=== PATIENT | female | born 1995 | race Caucasian/White ===

== ENCOUNTER 2022-11-16 04:03 | Emergency (ER) | payer OTHER ==
[2022-11-16 04:12] VITALS: RESP 16; TEMP 98
[2022-11-16] MEDS ORDERED: ONDANSETRON 4 MG/2 ML VIAL IVP STA (04:59)
[2022-11-16] MEDS ORDERED: SODIUM CHLORIDE 0.9% 1,000 ML IV STA (04:59)
--- NOTE | 2022-11-16 05:27 | ED ---
General Adult HPI - General Chief complaint: Dizziness Stated complaint: Dizziness, Vomitting, Weakness Time Seen by Provider: 11/16/22 04:27 Source: patient, RN notes reviewed, old records reviewed Mode of arrival: ambulatory Limitations: no limitations - History of Present Illness Initial comments: Patient is a 27-year-old female who presents emergency Department complaining of months of lightheadedness symptoms associated with nausea. States that it has seemed to be worse over the last day or 2. Denies any head trauma. Denies any change in medications. Denies any known palliative or provocative factors. Has not yet followed up with anyone for it. Was concerned she may have MS. Denies any current lightheadedness or nausea. Denies any weakness or numbness. Denies any fevers, chills, cough, chest pain, shortness breath, abdominal pain, diarrhea, urinary complaints. Denies being . His no other acute complaints at this time. States the lightheadedness seems to be mostly when she stands but does resolve when she sits down. No cardiac history. Presents for further evaluation at this time. - Related Data Home Medications Medication Instructions Recorded Confirmed Emtricitabine/Tenofovir (Tdf) 1 tab PO DAILY 08/09/21 08/09/21 [Emtricitabine-Tenofv 200-300Mg] Raltegravir Potassium [Isentress] 400 mg PO BID 08/09/21 08/09/21 Previous Rx's Medication Instructions Recorded Nicotine 21Mg/24Hr Patch [Habitrol] 1 patch TRANSDERM DAILY 30 Days 08/13/21 patch Paliperidone IM [Invega Sustenna] 156 mg IM QMONTHLY #1 each 08/13/21 Paliperidone [Invega] 3 mg PO HS 14 Days tablet 08/13/21 metFORMIN HCL [Glucophage] 500 mg PO BID-W/MEALS 30 Days tab 08/13/21 Allergies Allergy/AdvReac Type Severity Reaction Status Date / Time No Known Allergies Allergy Verified 11/16/22 04:08 Review of Systems ROS Statement: Those systems with pertinent positive or pertinent negative responses have been documented in the HPI. Review of Systems: CONST: Denies fever EYES: Denies blurry vision ENT: Denies nasal congestion C/V: Denies Chest pain RESP: Denies shortness of breath GI: Denies abdominal pain : Denies dysuria SKIN: Denies rash. MSK: Denies joint pain. NEURO: Endorses lightheadedness ROS Other: All systems not noted in ROS Statement are negative. 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 HEAD: Normal with no signs of head trauma. EYES: PERRLA, EOMI, conjunctiva normal, no discharge. Pupils 3 mm and equal bilaterally. ENT: Hearing grossly intact, normal oropharynx. RESPIRATORY: Clear breath sounds bilaterally. No wheezes, rales, or rhonchi. C/V: Regular rate and rhythm. S1 and S2 auscultated, peripheral pulses 2+ and intact throughout ABD: Abd is soft, nontender, nondistended EXT: Normal range of motion, no obvious deformity SKIN: No rashes or lesions observed on exposed skin. NEURO: Alert and oriented x 4. Cranial nerves II-XII intact. No focal sensory or strength deficits. NIH is 0. GCS 15. Cerebellar function intact as evident by normal finger to nose testing and [id number] testing. Limitations: no limitations Course Vital Signs 11/16/22 11/16/22 04:08 06:10 Temperature 98.0 F Pulse Rate 92 84 Respiratory 16 16 Rate Blood Pressure 124/67 138/91 O2 Sat by Pulse 98 100 Oximetry Medical Decision Making - Medical Decision Making Was pt. sent in by a medical professional or institution (, PA, ORIENTAL RUG REPAIRER, urgent care, hospital, or halfway...) When possible be specific @ -No Did you speak to anyone other than the patient for history (EMS, parent, family, police, friend...)? What history was obtained from this source @ -No Did you review nursing and triage notes (agree or disagree)? Why? @ -I reviewed and agree with nursing and triage notes Were old charts reviewed (outside hosp., previous admission, EMS record, old EKG, old radiological studies, urgent care reports/EKG's, halfway records)? Report findings @ -No old charts were reviewed Differential Diagnosis (chest pain, altered mental status, abdominal pain women, abdominal pain men, vaginal bleeding, weakness, fever, dyspnea, syncope, headache, dizziness, GI bleed, back pain, seizure, CVA, palpatations, mental health, musculoskeletal)? @ -Dehydration, near syncope, cardiac disease, intracranial process. This list is not all-inclusive. EKG interpreted by me (3pts min.). @ -As above X-rays interpreted by me (1pt min.). @ -None done CT interpreted by me (1pt min.). @ -CT brain revealed no evidence of obvious acute intra cranial process. U/S interpreted by me (1pt. min.). @ -None done What testing was considered but not performed or refused? (CT, X-rays, U/S, labs)? Why? @ -None What meds were considered but not given or refused? Why? @ -None Did you discuss the management of the patient with other professionals (professionals i.e. , PA, ORIENTAL RUG REPAIRER, lab, RT, psych nurse, social work job titles, it administrative assistant, teacher, jailer/training officer, case technician)? Give summary @ -No Was smoking cessation discussed for >3mins.? @ -No Was critical care preformed (if so, how long)? @ -No Were there social determinants of health that impacted care today? How? (Homelessness, low income, unemployed, alcoholism, drug addiction, transportation, low edu. Level, literacy, decrease access to med. care, [facility], rehab)? @ -No Was there de-escalation of care discussed even if they declined (Discuss DNR or withdrawal of care, Hospice)? DNR status @ -No What co-morbidities impacted this encounter? (DM, HTN, Smoking, COPD, CAD, Cancer, CVA, ARF, Chemo, Hep., AIDS, mental health diagnosis, sleep apnea, morbid obesity)? @ -None Was patient admitted / discharged? Hospital course, mention meds given and route, prescriptions, significant lab abnormalities, going to OR and other pertinent info. @ -Based on the patient's presentation and physical exam, she presents emergency Department complaining of lightheadedness for the last few months, possibly worse over the last few days. Is concerned she may have MS and wanted to be evaluated. Currently is asymptomatic. Neuro exam unremarkable. At her request we will obtain CT brain as well as basic labs. She was in agreement this plan. She'll be symptomatically treated with IV fluids and Zofran. Vital signs within acceptable limits. EKG showed no signs of acute ischemia.CT brain unremarkable. Laboratory studies within acceptable limits. On reevaluation, patient would like to go home. We reviewed her workup. She expressed understanding. Strict return precautions discussed. She'll be dis charged home at this time. She remains asymptomatic at this time. I instructed the patient to follow up with their PCP in the next 1-3 days. . I explained that the patient should return to the emergency department if they experience any worsening symptoms. Strict return precautions were discussed with the patient. The patient expressed understanding of these instructions. I answered all questions that the patient had. The patient was discharged home in good condition with their prescriptions and follow up information. Undiagnosed new problem with uncertain prognosis? @ -No Drug Therapy requiring intensive monitoring for toxicity (Heparin, Nitro, Insulin, Cardizem)? @ -No Were any procedures done? @ -No Diagnosis/symptom? @ -Lightheadedness Acute, or Chronic, or Acute on Chronic? @ -Chronic Uncomplicated (without systemic symptoms) or Complicated (systemic symptoms)? @ -Uncomplicated Side effects of treatment? @ -No Exacerbation, Progression, or Severe Exacerbation? @ -No Poses a threat to life or bodily function? How? (Chest pain, USA, [place], pneumonia, PE, COPD, DKA, ARF, appy, cholecystitis, CVA, Diverticulitis, Homicidal, Suicidal, threat to staff... and all critical care pts) @ -No - Lab Data Result diagrams: 11/16/22 05:20 11/16/22 05:20 Lab Results 11/16/22 11/16/22 Range/Units 05:20 05:20 WBC 10.1 (3.8-10.6) k/uL RBC 4.68 (3.80-5.40) m/uL Hgb 13.6 (11.4-16.0) gm/dL Hct 40.8 (34.0-46.0) % MCV 87.1 (80.0-100.0) fL MCH 29.0 (25.0-35.0) pg MCHC 33.2 (31.0-37.0) g/dL RDW 12.6 (11.5-15.5) % Plt Count 210 (150-450) k/uL MPV 7.2 Neutrophils % 73 % Lymphocytes % 20 % Monocytes % 5 % Eosinophils % 1 % Basophils % 0 % Neutrophils # 7.3 (1.3-7.7) k/uL Lymphocytes # 2.0 (1.0-4.8) k/uL Monocytes # 0.5 (0-1.0) k/uL Eosinophils # 0.1 (0-0.7) k/uL Basophils # 0.0 (0-0.2) k/uL Sodium 137 (137-145) mmol/L Potassium 3.9 (3.5-5.1) mmol/L Chloride 106 (98-107) mmol/L Carbon Dioxide 26 (22-30) mmol/L Anion Gap 5 mmol/L BUN 9 (7-17) mg/dL Creatinine 0.72 (0.52-1.04) mg/dL Est GFR (CKD-EPI)AfAm >90 (>60 ml/min/1.73 sqM) Est GFR (CKD-EPI)NonAf >90 (>60 ml/min/1.73 sqM) Glucose 97 (74-99) mg/dL Calcium 8.4 (8.4-10.2) mg/dL HCG, Qual Not Detected - EKG Data -: EKG Interpreted by Me EKG Comments: 12-lead Electrocardiogram Interpretation Note EKG was reviewed and interpreted by myself. 12-lead ECG performed at 0509 is interpreted by me as revealing normal sinus rhythm at a rate of 63 beats per minute. [place] is normal. PA interval is 146 ms, QRS duration is 79 ms, ATC is 374 ms.. There were no ST or T wave abnormalities to suggest myocardial ischemia or injury. R wave progression across the precordium was satisfactory. By my interpretation this EKG is non-diagnostic for acute ischemia. Disposition Clinical Impression: Lightheadedness Disposition: HOME SELF-CARE Condition: Good Instructions (If sedation given, give patient instructions): Dizziness (ED) Is patient prescribed a controlled substance at d/c from ED?: No Referrals: Mir Askew MD [Primary Care Provider] - 1-2 days Time of Disposition: 06:10
[2022-11-16 05:32] LABS: Basophils % (A) 0 %; Eosinophils # (A) 0.1 k/uL (0-0.7); Eosinophils % (A) 1 %; HCT 40.8 % (34.0-46.0); HGB 13.6 gm/dL (11.4-16.0); Lymphocytes % (A) 20 %; MCHC 33.2 g/dL (31.0-37.0); MCV 87.1 fL (80.0-100.0); Mean Platelet Volume 7.2; Monocytes # (A) 0.5 k/uL (0-1.0); Monocytes % (A) 5 %; Neutrophils # (A) 7.3 k/uL (1.3-7.7); Neutrophils % (A) 73 %; Platelet Count 210 k/uL (150-450); RBC 4.68 m/uL (3.80-5.40); RDW 12.6 % (11.5-15.5); WBC 10.1 k/uL (3.8-10.6)
[2022-11-16 05:51] LABS: African American GFR (CKD) >90 (>60 ml/min/1.73 sqM); Anion Gap 5 mmol/L; Blood Urea Nitrogen 9 mg/dL (7-17); Calcium 8.4 mg/dL (8.4-10.2); Carbon Dioxide 26 mmol/L (22-30); Chloride 106 mmol/L (98-107); Glucose 97 mg/dL (74-99); Non-African American GFR(CKD) >90 (>60 ml/min/1.73 sqM); Potassium 3.9 mmol/L (3.5-5.1); Sodium 137 mmol/L (137-145)
[2022-11-16 05:56] LABS: HCG,Qualitative Serum Not Detected
[2022-11-16 06:13] VITALS: BP 138/91; PULSE 84
--- NOTE | 2022-11-16 06:14 | CT ---
EXAMINATION TYPE: CT brain wo con CT DLP: 1129 mGycm, Automated exposure control for dose reduction was used. DATE OF EXAM: 11/16/2022 5:10 AM COMPARISON: . CLINICAL INDICATION:Female, 27 years old with history of dizzy, TECHNIQUE: Brain: Axial CT images of the brain were obtained with coronal and sagittal reformats created and rev iewed. Contrast used: None. Oral contrast used: None. FINDINGS: Brain: Extra-axial spaces: No abnormal extra-axial fluid collections. Ventricular system: Within normal limits Cerebral parenchyma: No acute intraparenchymal hemorrhage or mass effect. The atkinson-white junction is well differentiated. Cerebellum: Unremarkable. Mass effect: No evidence of midline shift. Intracranial vasculature: unremarkable Soft tissues: Normal. Calvarium/osseous structures: No depressed skull fracture. Paranasal sinuses and mastoid air cells: Mild scattered paranasal sinus disease. Visualized orbits: Orbital contents are intact. IMPRESSION: No acute intracranial process.
== END 2022-11-16 06:32 | disposition home or self-care (01) ==
LOC: EC 04:03
DX: R42 Dizziness and giddiness (principal); F32.A Depression, unspecified; F17.290 Nicotine dependence, other tobacco product, uncomplicated; F12.90 Cannabis use, unspecified, uncomplicated
CPT/HCPCS: 36415; 93005; 80048; 85025; 84703; 70450; 99284; 96374; 96361; J2405

== ENCOUNTER 2022-11-16 19:47 | Inpatient (IN) | payer OTHER, MEDICAID ==
--- NOTE | 2022-11-16 22:18 | ED ---
General Adult HPI - General Chief complaint: Anxiety Stated complaint: Mental Health Time Seen by Provider: 11/16/22 21:21 Source: patient, family, RN notes reviewed, old records reviewed Mode of arrival: ambulatory Limitations: no limitations - History of Present Illness Initial comments: Patient is a 27-year-old female who presents emergency Department complaining of worsening anxiety. Presents with her father today. I evaluated the patient earlier this morning with complaints of intermittent lightheadedness. She did not outline transfer mental health evaluation earlier this morning. She returns this evening with her father, should sending text messages that she thinks she needs to seek help. Is concerned as it does appear she is having unspecified delusions and paranoia. She has been compliant with her medications Abilify with no relief. Denies suicidal or homicidal ideations, attempts, plans. Denies any visual or auditory hallucinations. She is requesting psychiatric evaluation. Otherwise has no acute complaints at this time. - Related Data Home Medications Medication Instructions Recorded Confirmed ARIPiprazole IM SYRINGE [Abilify 400 mg IM Q28D 11/16/22 11/16/22 Maintena Syringe] Allergies Allergy/AdvReac Type Severity Reaction Status Date / Time No Known Allergies Allergy Verified 11/16/22 22:39 Review of Systems ROS Statement: Those systems with pertinent positive or pertinent negative responses have been documented in the HPI. Review of Systems: CONST: Denies fever EYES: Denies blurry vision ENT: Denies nasal congestion C/V: Denies Chest pain RESP: Denies shortness of breath GI: Denies abdominal pain : Denies dysuria SKIN: Denies rash. MSK: Denies joint pain. NEURO: Denies headache PSYCH: Denies suicidal and homicidal ideations/plans/attempts. Denies visual or auditory hallucinations. She endorses worsening anxiety, unspecified delusions and paranoia ROS Other: All systems not noted in ROS Statement are negative. 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 EYES: PERRLA, EOMI, conjunctiva normal, no discharge. Pupils 3 mm and equal bilaterally. ENT: Hearing grossly intact, normal oropharynx. RESPIRATORY: Clear breath sounds bilaterally. No wheezes, rales, or rhonchi. C/V: Regular rate and rhythm. S1 and S2 auscultated, no edema, peripheral pulses 2+ and intact throughout ABD: Abd is soft, nontender, nondistended EXT: Normal range of motion, no obvious deformity SKIN: No rashes or lesions observed on exposed skin. NEURO: Alert and oriented 4. No focal sensory or strength deficits. Cranial nerves II through XII are intact. NIH of 0. GCS is 15. Ambulates without difficulty. Normal cerebellar function. Limitations: no limitations Course Vital Signs 11/16/22 20:06 Temperature 98.0 F Pulse Rate 95 Respiratory 26 H Rate Blood Pressure 130/82 O2 Sat by Pulse 96 Oximetry Medical Decision Making - Medical Decision Making Was pt. sent in by a medical professional or institution (, PA, MAINTENANCE PLANNER, urgent care, hospital, or assisted...) When possible be specific @ -No Did you speak to anyone other than the patient for history (EMS, parent, family, police, friend...)? What history was obtained from this source @ -Patient's father who is at bedside who aids in the history states he received text messages which the patient states she wants psychiatric evaluation due to worsening delusions and paranoia. Patient does not want her father to reveal the exact delusions or paranoia to me at this time. Did you review nursing and triage notes (agree or disagree)? Why? @ -I reviewed and agree with nursing and triage notes Were old charts reviewed (outside hosp., previous admission, EMS record, old EKG, old radiological studies, urgent care reports/EKG's, assisted records)? Report findings @ -No old charts were reviewed Differential Diagnosis (chest pain, altered mental status, abdominal pain women, abdominal pain men, vaginal bleeding, weakness, fever, dyspnea, syncope, headache, dizziness, GI bleed, back pain, seizure, CVA, palpatations, mental health, musculoskeletal)? @ -Differential Mental Health Depression, anxiety, bipolar, psychosis, schizophrenia, borderline personality, situational depression, adjustment disorder, behavioral disorder, brain tumor, malingering, substance abuse, encephalopathy, medication reaction, dementia, hypothyroidism, degenerative neurologic disorder, lupus.... This is not meant to be all-inclusive list EKG interpreted by me (3pts min.). @ -None done X-rays interpreted by me (1pt min.). @ -None done CT interpreted by me (1pt min.). @ -None done U/S interpreted by me (1pt. min.). @ -None done What testing was considered but not performed or refused? (CT, X-rays, U/S, labs)? Why? @ -None What meds were considered but not given or refused? Why? @ -I offered an anxiolytic Ativan which she declines at this time. Did you discuss the management of the patient with other professionals (professionals i.e. , PA, MAINTENANCE PLANNER, lab, RT, psych nurse, social services designee, music manager, teacher, dental officer, case therapist)? Give summary @ -EPS was notified of the consult for psychiatric evaluation. They notified me the patient will be admitted. Was smoking cessation discussed for >3mins.? @ -No Was critical care preformed (if so, how long)? @ -No Were there social determinants of health that impacted care today? How? (Homelessness, low income, unemployed, alcoholism, drug addiction, transportation, low edu. Level, literacy, decrease access to med. care, intermediate, rehab)? @ -No Was there de-escalation of care discussed even if they declined (Discuss DNR or withdrawal of care, Hospice)? DNR status @ -No What co-morbidities impacted this encounter? (DM, HTN, Smoking, COPD, CAD, Cancer, CVA, ARF, Chemo, Hep., AIDS, mental health diagnosis, sleep apnea, morbid obesity)? @ -History of psychiatric illness Was patient admitted / discharged? Hospital course, mention meds given and route, prescriptions, significant lab abnormalities, going to OR and other pertinent info. @ -Based on the patient's presentation and physical exam, I believe she requires psychiatric evaluation. She was placed in green scrubs. Sitter was ordered. BAT is 0. UDS is pending. Vital signs within acceptable limits. I did offer the patient Ativan which she refuses at this time. At this time, patient is medically cleared for evaluation by psychiatry. Disposition is pending psychiatric evaluation. EPS is notified. Patient evaluated by EPS. Determined that she does meet inpatient criteria for admission. Patient signed herself in. She was admitted in stable condition. Undiagnosed new problem with uncertain prognosis? @ -No Drug Therapy requiring intensive monitoring for toxicity (Heparin, Nitro, Insulin, Cardizem)? @ -No Were any procedures done? @ -No Diagnosis/symptom? @ -Encounter for psychiatric evaluation, delusions, paranoia Acute, or Chronic, or Acute on Chronic? @ -Acute on chronic Uncomplicated (without systemic symptoms) or Complicated (systemic symptoms)? @ -Uncomplicated Side effects of treatment? @ -No Exacerbation, Progression, or Severe Exacerbation? @ -No Poses a threat to life or bodily function? How? (Chest pain, [place], [place], pneumonia, PE, COPD, DKA, ARF, appy, cholecystitis, CVA, Diverticulitis, Homicidal, Suicidal, threat to staff... and all critical care pts) @ -No - Lab Data Lab Results 11/16/22 11/17/22 Range/Units 21:38 01:37 Urine Opiates Screen Not Detected (NotDetected) Ur Oxycodone Screen Not Detected (NotDetected) Urine Methadone Screen Not Detected (NotDetected) Ur Propoxyphene Screen Not Detected (NotDetected) Ur Barbiturates Screen Not Detected (NotDetected) U Tricyclic Antidepress Not Detected (NotDetected) Ur Phencyclidine Scrn Not Detected (NotDetected) Ur Amphetamines Screen Not Detected (NotDetected) U Methamphetamines Scrn Not Detected (NotDetected) U Benzodiazepines Scrn Not Detected (NotDetected) Urine Cocaine Screen Not Detected (NotDetected) U Marijuana (THC) Screen Detected H (NotDetected) Coronavirus (PCR) Not Detected (Not Detectd) Disposition Clinical Impression: Encounter for psychological evaluation, Anxiety, Delusions, Paranoia Disposition: ADMITTED IP TO THIS [facility] Condition: Stable Instructions (If sedation given, give patient instructions): Generalized Anxiety Disorder (ED) Referrals: Mir Askew MD [Primary Care Provider] - 1-2 days Time of Disposition: 01:30
[2022-11-16 22:24] LABS: Amphetamine Screen,Urine Not Detected (NotDetected); Barbiturate Screen,Urine Not Detected (NotDetected); Benzodiazepines Screen,Urine Not Detected (NotDetected); Cocaine Screen,Urine Not Detected (NotDetected); Methadone Screen, Urine Not Detected (NotDetected); Opiate Screen,Urine Not Detected (NotDetected); Oxycodone Screen, Urine Not Detected (NotDetected); Phencyclidine Screen,Urine Not Detected (NotDetected); Tricyclic Antidepressant,Urine Not Detected (NotDetected); Urn Cannabinoid Scrn Detected (NotDetected)
[2022-11-17] MEDS ORDERED: LORazepam 0.5 MG TAB PO STA (02:12)
[2022-11-17] MEDS ORDERED: MAG HYDROX/AL HYDROX/SIMETH 30 ML CUP PO PRN (04:54)
[2022-11-17] MEDS ORDERED: HALOPERIDOL LACTATE 5 MG/ML 1 ML VIAL IM PRN (04:54)
[2022-11-17] MEDS ORDERED: MAGNESIUM HYDROXIDE 2,400 MG/10 ML CUP PO PRN (04:54)
[2022-11-17] MEDS ORDERED: LORazepam 1 MG TAB PO PRN (04:54)
[2022-11-17] MEDS ORDERED: haloperidoL 5 MG TAB PO PRN (05:05)
[2022-11-17] MEDS ORDERED: LORazepam 2 MG/ML INJ IM PRN (05:05)
[2022-11-17 06:11] LABS: Appearance,Urine Cloudy (Clear); Bacteria,Urine Few /hpf; Bilirubin,Urine Negative (Negative); Blood,Urine Small (Negative); Color,Urine Yellow; Glucose,Urine (UA) Negative (Negative); Ketones,Urine Negative (Negative); Leukocyte Esterase,Urine Negative (Negative); Mucus,Urine Rare /hpf; Nitrite,Urine Negative (Negative); Protein,Urine Negative (Negative); RBC,Urine 1 /hpf (0-5); Specific Gravity,Urine 1.025 (1.001-1.035); Squamous Epithelial Cell,Urine 4 /hpf (0-4); Urobilinogen,Urine <2.0 mg/dL (<2.0); WBC,Urine 2 /hpf (0-5)
[2022-11-17] MEDS: NICOTINE 14MG/24HR PATCH TRANSDERM SCH ×2 (14:49→15:06)
[2022-11-17] MEDS: NICOTINE GUM (POLACRILEX) 2 MG GUM BUCCAL PRN ×2 (16:27→21:17)
--- NOTE | 2022-11-17 20:54 | P.HP ---
Psychiatric H&P - . H&P Date: 11/17/22 History & Physical: Allergies Allergy/AdvReac Type Severity Reaction Status Date / Time No Known Allergies Allergy Verified 11/16/22 22:39 Vital Signs Temp 98.2 F 11/17/22 05:33 Pulse 68 11/17/22 05:33 Resp 18 11/17/22 05:33 BP 116/75 11/17/22 05:33 Pulse Ox 97 11/17/22 05:33 FiO2 Intake & Output 11/17/22 11/17/22 11/18/22 06:59 18:59 06:59 Weight 92.986 kg Laboratory Last Values Urine Color Yellow 11/16/22 21:38 Urine Appearance Cloudy (Clear) H 11/16/22 21:38 Urine pH 6.0 (5.0-8.0) 11/16/22 21:38 Ur Specific [place] 1.025 (1.001-1.035) 11/16/22 21:38 Urine Protein Negative (Negative) 11/16/22 21:38 Urine Glucose (UA) Negative (Negative) 11/16/22 21:38 Urine Ketones Negative (Negative) 11/16/22 21:38 Urine Blood Small (Negative) H 11/16/22 21:38 Urine Nitrite Negative (Negative) 11/16/22 21:38 Urine Bilirubin Negative (Negative) 11/16/22 21:38 Urine Urobilinogen <2.0 mg/dL (<2.0) 11/16/22 21:38 Ur Leukocyte Esterase Negative (Negative) 11/16/22 21:38 Urine RBC 1 /hpf (0-5) 11/16/22 21:38 Urine WBC 2 /hpf (0-5) 11/16/22 21:38 Ur Squamous Epith Cells 4 /hpf (0-4) 11/16/22 21:38 Urine Bacteria Few /hpf (None) H 11/16/22 21:38 Urine Mucus Rare /hpf (None) H 11/16/22 21:38 Urine HCG, Qual Not Detected (Not Detectd) 11/16/22 21:38 Urine Opiates Screen Not Detected (NotDetected) 11/16/22 21:38 Ur Oxycodone Screen Not Detected (NotDetected) 11/16/22 21:38 Urine Methadone Screen Not Detected (NotDetected) 11/16/22 21:38 Ur Propoxyphene Screen Not Detected (NotDetected) 11/16/22 21:38 Ur Barbiturates Screen Not Detected (NotDetected) 11/16/22 21:38 U Tricyclic Antidepress Not Detected (NotDetected) 11/16/22 21:38 Ur Phencyclidine Scrn Not Detected (NotDetected) 11/16/22 21:38 Ur Amphetamines Screen Not Detected (NotDetected) 11/16/22 21:38 U Methamphetamines Scrn Not Detected (NotDetected) 11/16/22 21:38 U Benzodiazepines Scrn Not Detected (NotDetected) 11/16/22 21:38 Urine Cocaine Screen Not Detected (NotDetected) 11/16/22 21:38 U Marijuana (THC) Screen Detected (NotDetected) H 11/16/22 21:38 Coronavirus (PCR) Not Detected (Not Detectd) 11/17/22 01:37 11/17/22 20:31 Interval History: Patient is a 27 yo female, works at a [employer], no kids, homeless, single H and P: Patient cmae into the EDfor complaints of increased anxiety, borughtin by her father. patient was evaluated by EPS and seen to be disorganized and bizarre and admitted to the MHU. veronica has a hx of schizoaffective disorder bipolar type and currently being treated at [facility] by Dr Gama and recently given Abilify Maintenna 400 mg IM last on 11/14. Patient was seen wandering the hallways and was agreeable to speak with property underwriter inthe office today. patient appeared to be discheveled in appearance. he was also disorganized in her thought process, had thought blocking and was illogical at times. she was minimizing her sx and need for hospitalization and treatment. she had poor/limited insight. she claims that she was feeling "confused" and also stated that her brain was "neurodegenerative" and felt lik her brain was "scrambled recently. she was a poor historian, rambled at times. she claims that these symptoms have started the past 2-3 months. she claims that she is having financial stressors, her car is "gone" and claims that she is having problems wih her father. she also was tearful when describing her poor social support. she states that she is havign anxiety and depression, claims her sleep is poor, appetite is fair. denies any paranoia at this time. she denies any AH or VH and denies any SI or HI. claims that she uses a significant amount of cannabis daily, and also smokes cigarettes. past psych hx: Patient has a documented hx of shizoaffective disorder, bipolar type. she follows up at [facility] with Dr Gama. she is currently on abilify maintenna 400 mg IM monthly. she was previously on invega sustenna and claims that it made her feel suicidal. she claims that she was last hospitalized at [facility] about 5 yrs ago. denies any suicide attempts in the past Past medical hx: see medical H and P family hx: patient denies social hx: Patient claims that she was born and raised in [place]. she states that she completed high school and did some college. 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 she denies any legal hx Mental status exam: Patient is mildly overwieght, long discheleved hair, confused and bizarre at times. she was attempting to cooperate. her speech was disorganzied and conrete, rambling at times. mood is depressed and endorsing some anxiety, affect is tearful and constricted. denies any si or hi and denies any ah or vh. she was disorganzie in htoughts and content. focused and minimzing her sx. she has poor ingith and judgment. alert and oriented to person and place only. poor concentration weakness/strength: Patient has poor social support, homeless, she has access to care and established with follow up. Assessment: Schizoaffective disorder bipolar type cannabis use disorder nicotine dependence homelessness Plan: Patient was admitted voluntarily to the MHU. she signed voluntary form and med consent forms, placed in chart. medications: patient was already given abilify maintenna 400 mg IM on 11/14 at [facility]. she is agreeable to start seroquel 50 mg qhs for psychosis/mood stabilization/insomnia. ativan and haldol prn for agitation/anxiety encouraged patient to cut back on cannabis use as this is likely percipiating her mental health condition NRT-nicotine gum encouraged groups and participation in [employer]. 11/17/22 20:52
[2022-11-17] MEDS: QUEtiapine 50 MG TAB PO SCH (21:17)
--- NOTE | 2022-11-17 21:57 | P.CONS ---
History of Present Illness - Reason for Consult Consult date: 11/17/22 Medical management Requesting physician: Jose Rizo - Chief Complaint Not feeling right - History of Present Illness This is a pleasant 27-year-old patient, follows with Dr. Mir Askew. She does take Abilify IM once a month at home. Patient presents to the ER with her father. With anxiety some confusion. She wanted to get help and echotexture the father. Appetite has been fair. He is sleeping okay. No fever no chills. Apparently 2 days ago had taken about 200 mg of hydrocodone overnight. Patient does vaping every day. Stop doing methamphetamine about a year ago. Lives on her own. 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 Daily Vaping.. No alcohol. Stop doing methamphetamine about 1 year ago Physical examination: VITAL SIGNS: 98, 95, 26, 1:30/82, 96% room air GENERAL: BMI 34.1, sitting up his age in bed not in distress. EYES: Pupils equal. Conjunctiva normal. HEENT: External appearance of nose and ears normal, oral cavity grossly normal. NECK: JVD not raised; masses not palpable. HEART: First and second heart sounds are normal; no edema. LUNGS: Respiratory rate normal; clear to auscultation. ABDOMEN: Soft, nontender, liver spleen not palpable, no masses palpable. PSYCH: Alert and oriented x3; mood and affect anxiousl. MUSCULOSKELETAL:No Clubbing/cyanosis;muscles-grossly intact NEUROLOGICAL: Cranial nerves grossly intact; no facial asymmetry, power and sensation grossly intact. LYMPHATICS: No lymph nodes palpable in the axilla and neck INVESTIGATIONS, reviewed in the clinical context: UA: Small blood. Urine drug screen: Positive for marijuana COVID-19 PCR: Not detected Assessment and plan: -Vaping. Patient counseled against the same -Marijuana recreational use Advised against the same -Bipolar disorder with possibly manic flareup Follow with psychiatry -Obesity BMI 34.1 Weight loss measures -overdose about 48 hours ago with 200 mg of tetrahydrocannabinol. Thank you Dr. Goyes Past Medical History Past Medical History: No Reported History Additional Past Medical History / Comment(s): clean from meth for one year 10/2022 History of Any Multi-Drug Resistant Organisms: None Reported Past Surgical History: No Surgical Hx Reported Additional Past Surgical History / Comment(s): eye Past Anesthesia/Blood Transfusion Reactions: No Reported Reaction Past Psychological History: Bipolar, Depression Smoking Status: Current every day smoker, Vaper Past Alcohol Use History: None Reported Past Drug Use History: None Reported Medications and Allergies Home Medications Medication Instructions Recorded Confirmed Type ARIPiprazole IM SYRINGE [Abilify 400 mg IM Q28D 11/16/22 11/16/22 History Maintena Syringe] Allergies Allergy/AdvReac Type Severity Reaction Status Date / Time No Known Allergies Allergy Verified 11/16/22 22:39 Physical Exam Vitals: Vital Signs Temp Pulse Pulse Resp BP BP Pulse Ox 11/17/22 05:33 98.2 F 68 18 116/75 97 11/16/22 20:06 98.0 F 95 26 H 130/82 96 Intake and Output 11/16/22 11/17/22 11/17/22 22:59 06:59 14:59 Other: Weight 95.254 kg 92.986 kg Results Labs: Abnormal Lab Results - Last 24 Hours (Table) 11/16/22 11/16/22 Range/Units 21:38 21:38 Urine Appearance Cloudy H (Clear) Urine Blood Small H (Negative) Urine Bacteria Few H (None) /hpf Urine Mucus Rare H (None) /hpf U Marijuana (THC) Screen Detected H (NotDetected)
[2022-11-18] MEDS: NICOTINE GUM (POLACRILEX) 2 MG GUM BUCCAL PRN ×4 (08:01→20:49)
[2022-11-18] MEDS: ACETAMINOPHEN TAB 325 MG TAB PO PRN (13:50)
--- NOTE | 2022-11-18 14:00 | P.PN ---
Progress Note - Text Progress Note Date: 11/18/22 Interval History: Patient was seen wandering the hallways and was directable and agreeable to sp ale with typewriter assembly and parts inspector in the office. Patient appears to have mild improvement in her hygiene and grooming today. She appears to be more directable today and less confused. She claims that the Seroquel did help her sleep last night and she is agreeable to continue on with her. She did not want to have her medications increased. We spoke more about her family and also potential discharge planning She claims that she will try to go to some groups today. She states that her anxiety mood up and mildly improving. Anxiety fair appetite. At this time patient denies any suicidal or homical ideations, intent or plan. Patient denies any auditory, visual hallucinations and denies any paranoia or delusions. Patient denies any side effects from the medications and has been compliant with meds. Mental Status Exam: General Appearance: Patient appears to be stated age is alert, directable, and cooperative. Mildly disheveled today. Behavior: Patient is calmly seated without any agitated behavior. Improving. Less bizarre. Speech: Patient's speech is fluent and nonpressured. Mood/Affect: Mood is improving mildly, affect is congruent and constricted. Suicidality/Homicidality: Patient denies having any suicidal or homicidal ideation intent or plan. Perceptions: Patient denies any visual hallucinations and denies any auditory hallucinations Though content/process: There is no evidence of any delusional thought content and thought process is linear and goal-directed. Less rambling and more logical. Memory and concentration: AOX3, grossly intact for the purposes of this session Judgment and insight: Poor, Improving mildly Assessment Schizoaffective disorder bipolar type cannabis use disorder nicotine dependence homelessness Plan: -Patient continues to meet criteria for inpatient psychiatric admission for symptom stabilization and safety. Patient has not signed adult voluntary form and medication consent and was placed in patient's chart. -Medications: given abilify maintenna 400 mg IM on 11/14 at [facility]. Continue with seroquel 50 mg qhs for psychosis/mood stabilization/insomnia. -When necessary Ativan and Haldol for agitation/aggression. -NRT - nicotine gum -SW on board for discharge planning. Encouraged the patient to participate in milieu. If patient continues to do well then likely discharge Monday versus Monday.
[2022-11-18] MEDS: QUEtiapine 50 MG TAB PO SCH (20:49)
[2022-11-19] MEDS: NICOTINE GUM (POLACRILEX) 2 MG GUM BUCCAL PRN ×4 (08:22→20:37)
--- NOTE | 2022-11-19 16:59 | P.PN ---
Progress Note - Text Progress Note Date: 11/19/22 Interval History: Patient was seen wandering the hallways and was directable and agreeable to sp ale with advertising writer in the office. Patient appears to have mild improvement in her hygiene and grooming today. She says her mood is "pretty good" today. She says that she is not as confused as she felt yesterday. She also reports sleeping well on the Seroquel and says that the Abilify has also been helpful. Patient says that she has been attending groups and denies other concerns including anxiety. At this time patient denies any suicidal or homicidal ideations, intent or plan. Patient denies any auditory, visual hallucinations and denies any paranoia or delusions. Patient denies any side effects from the medications and has been compliant with meds. Mental Status Exam: General Appearance: Patient appears to be stated age is alert, directable, and cooperative. Mildly disheveled today. Behavior: Patient is calmly seated without any agitated behavior. Improving. Less bizarre. Speech: Patient's speech is fluent and nonpressured. Mood/Affect: Mood is improving mildly, affect is congruent and constricted. Suicidality/Homicidality: Patient denies having any suicidal or homicidal ideation intent or plan. Perceptions: Patient denies any visual hallucinations and denies any auditory hallucinations Though content/process: There is no evidence of any delusional thought content and thought process is linear and goal-directed. Less rambling and more logical. Memory and concentration: AOX3, grossly intact for the purposes of this session Judgment and insight: Poor, Improving mildly Assessment Schizoaffective disorder bipolar type cannabis use disorder nicotine dependence homelessness Plan: -Patient continues to meet criteria for inpatient psychiatric admission for symptom stabilization and safety. Patient has not signed adult voluntary form and medication consent and was placed in patient's chart. -Medications: given abilify maintenna 400 mg IM on 11/14 at [facility]. Continue with seroquel 50 mg qhs for psychosis/mood stabilization/insomnia. -When necessary Ativan and Haldol for agitation/aggression. -NRT - nicotine gum -SW on board for discharge planning. Encouraged the patient to participate in milieu. If patient continues to do well then likely discharge Monday versus Monday.
[2022-11-19] MEDS: QUEtiapine 50 MG TAB PO SCH (20:06)
[2022-11-20] MEDS: NICOTINE GUM (POLACRILEX) 2 MG GUM BUCCAL PRN ×3 (08:17→19:57)
[2022-11-20] MEDS: ACETAMINOPHEN TAB 325 MG TAB PO PRN (11:35)
[2022-11-20] MEDS ORDERED: NICOTINE 21MG/24HR PATCH TRANSDERM SCH (12:00)
--- NOTE | 2022-11-20 16:15 | P.PN ---
Progress Note - Text Progress Note Date: 11/20/22 Interval History: Patient was seen wandering the hallways and was directable and agreeable to sp ale with sheet writer in the office. Patient appears to have mild improvement in her hygiene and grooming today. She says her mood is "pretty good" today. She says she is not sure why she needs to be hospitalized. She also reports sleeping well on the Seroquel and says that the Abilify has also been helpful. Patient says that she has been attending groups and denies other concerns including anxiety. She reports good appetite. She says that her thoughts are going at 25 miles per hour if the speed limit were to be 45 miles per hour. Patient does speak slower and says that this is usual for her but says she enjoys thinking faster. At this time patient denies any suicidal or homicidal ideations, intent or plan. Patient denies any auditory, visual hallucinations and denies any paranoia or delusions. Patient denies any side effects from the medications and has been compliant with meds. Mental Status Exam: General Appearance: Patient appears to be stated age is alert, directable, and cooperative. Mildly disheveled today. Behavior: Patient is calmly seated without any agitated behavior. Improving. Less bizarre. Speech: Patient's speech is fluent and nonpressured. Slowed Mood/Affect: Mood is improving mildly, affect is congruent and constricted. Suicidality/Homicidality: Patient denies having any suicidal or homicidal ideation intent or plan. Perceptions: Patient denies any visual hallucinations and denies any auditory hallucinations Though content/process: There is no evidence of any delusional thought content and thought process is linear and goal-directed. Less rambling and more logical. Memory and concentration: AOX3, grossly intact for the purposes of this session Judgment and insight: Poor, Improving mildly Assessment Schizoaffective disorder bipolar type cannabis use disorder nicotine dependence homelessness Plan: -Patient continues to meet criteria for inpatient psychiatric admission for symptom stabilization and safety. Patient has not signed adult voluntary form and medication consent and was placed in patient's chart. -Medications: given abilify maintena 400 mg IM on 11/14 at [facility]. Continue with seroquel 50 mg qhs for psychosis/mood stabilization/insomnia. -When necessary Ativan and Haldol for agitation/aggression. -NRT - nicotine gum -SW on board for discharge planning. Encouraged the patient to participate in milieu. If patient continues to do well then likely discharge Monday versus Monday.
[2022-11-20] MEDS: QUEtiapine 50 MG TAB PO SCH (19:57)
[2022-11-21 06:36] VITALS: RESP 17
[2022-11-21] MEDS: NICOTINE GUM (POLACRILEX) 2 MG GUM BUCCAL PRN ×3 (11:28→20:54)
--- NOTE | 2022-11-21 11:36 | P.DS ---
Providers Date of admission: 11/17/22 04:52 Expected date of discharge: 11/21/22 Attending physician: Jose Rizo MD Consults: 11/17/22 04:54 Consult Physician Routine Consulting Provider: Fortino Calvillo Consult Reason/Comments: medical H& P Do you want consulting provider notified?: Yes Primary care physician: Mir Askew MD - Discharge Diagnosis(es) (1) Schizoaffective disorder, bipolar type Current Visit: Yes Status: Acute Priority: High (2) Cannabis use disorder Current Visit: Yes Status: Acute Priority: High (3) Nicotine dependence Current Visit: Yes Status: Acute Priority: Low (4) Homelessness Current Visit: Yes Status: Acute Priority: Medium Hospital Course: Admission HPI: Admission note was completed by va underwriter "Patient is a 27 yo female, 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 Patient cmae into the EDfor complaints of increased anxiety, borughtin by her father. patient was evaluated by EPS and seen to be disorganized and bizarre and admitted to the MHU. veronica has a hx of schizoaffective disorder bipolar type and currently being treated at [facility] by Dr Gama and recently given Abilify Maintenna 400 mg IM last on 11/14. Patient was seen wandering the hallways and was agreeable to speak with va underwriter inthe office today. patient appeared to be discheveled in appearance. he was also disorganized in her thought process, had thought blocking and was illogical at times. she was minimizing her sx and need for hospitalization and treatment. she had poor/limited insight. she claims that she was feeling "confused" and also stated that her brain was "neurodegenerative" and felt lik her brain was "scrambled recently. she was a poor historian, rambled at times. she claims that these symptoms have started the past 2-3 months. she claims that she is having financial stressors, her car is "gone" and claims that she is having problems wih her father. she also was tearful when describing her poor social support. she states that she is havign anxiety and depression, claims her sleep is poor, appetite is fair. denies any paranoia at this time. she denies any AH or VH and denies any SI or HI. claims that she uses a significant amount of cannabis daily, and also smokes cigarettes." Hospital course: Upon admission to the unit patient was directable and agreeable to commence treatment and signed adult voluntary form. Patient was initially bizarre and isolative however with treatment in time she got along well with other patients on the unit and followed unit protocol. Patient was compliant with the medications and denied any side effects throughout hospital course. Patient was started on Seroquel 50 mg daily at bedtime for insomnia/psychosis. Patient had received Abilify Maintenna 400 mg IM at [facility] on 11/14 and will be due for her next dose of 400 mg IM at [facility] on 12/12. Patient spoke of her stressors and engaged in therapy both group and individual. Patient was also seen by medical team for history and physical exam. Throughout the course of the hospitalization patient gradually improved with regards to mood, anxiety, psychosis, bizarre behaviors, sleep and returned back to their baseline level of functioning. On the day of discharge patient denied any suicidal or homicidal ideations intent or plan denied any auditory or visual hallucinations. Patient endorsed wanting to live for her job and her life. The patient denied any access to guns or weapons. Patient denied any paranoia and did not endorse any delusions. Patient does have a significant history of substance abuse and was counseled on abstaining from all substances including alcohol and marijuana. Patient elected to do outpatient substance use treatment program through [facility]. Patient was also counseled on the medications and need for regular compliance and was encouraged to follow-up with their outpatient appointment for mental health and also for primary care. Mental status exam: General Appearance: Patient appears to be mildly overweight, stated age is alert, pleasant, and cooperative. Patient is in no acute distress and has improved hygiene and grooming Behavior: Patient is calmly seated without any agitated behavior. Speech: Patient's speech is fluent and nonpressured. [place] Mood/Affect: Patient reports their mood is "good", affect is congruent and euthymic. Suicidality/Homicidality: Patient denies having any suicidal or homicidal ideation intent or plan. Perceptions: Patient denies any auditory or visual hallucinations. Though content/process: There is no evidence of any delusional thought content and thought process is linear and goal-directed. Memory and concentration: AOX3, grossly intact for the purposes of this session. Can spell "WORLD" backwards correctly. Judgment and insight: chronically poor, however has improved with guarded prognosis Impression: Schizoaffective disorder bipolar type Cannabis use disorder Homelessness Nicotine dependence Plan: -Continue with discharge today as patient has improved and stabilized psychiatrically and is not currently an imminent threat to herself and/or others. Patient will remain at chronically elevated risk for harm to self and/or others due to her substance abuse. -Continue medications: Abilify Maintenna 400 mg IM, last dose given at [facility] on 11/14, next dose of 400 mg IM due on 12/12. Continue on with Seroquel 50 mg daily at bedtime for psychosis/insomnia. -Patient was counseled on the need for medication compliance and appropriate follow-up at mental health and also primary care for medical issues. Patient verbalized understanding and agreed. -Social work to help arrange for patient's discharge today. Social work also to arrange for patients follow up appointments with [facility] for psychiatric care along with follow up with primary care provider. -Patient counseled on abstaining from recreational drugs and marijuana and alcohol. Was informed/educated on the adverse effects on their physical and mental health. Patient verbally agreed and understood. Patient was offered substance abuse treatment however declined at this time. -Patient was instructed to return to the hospital or seek immediate medical care if their psychiatric or medical symptoms do worsen or reoccur. Allergies Allergy/AdvReac Type Severity Reaction Status Date / Time No Known Allergies Allergy Verified 11/16/22 22:39 Laboratory Results TSH 1.720 mIU/L (0.465-4.680) 11/18/22 07:47 Urine Color Yellow 11/16/22 21:38 Urine Appearance Cloudy (Clear) H 11/16/22 21:38 Urine pH 6.0 (5.0-8.0) 11/16/22 21:38 Ur Specific [place] 1.025 (1.001-1.035) 11/16/22 21:38 Urine Protein Negative (Negative) 11/16/22 21:38 Urine Glucose (UA) Negative (Negative) 11/16/22 21:38 Urine Ketones Negative (Negative) 11/16/22 21:38 Urine Blood Small (Negative) H 11/16/22 21:38 Urine Nitrite Negative (Negative) 11/16/22 21:38 Urine Bilirubin Negative (Negative) 11/16/22 21:38 Urine Urobilinogen <2.0 mg/dL (<2.0) 11/16/22 21:38 Ur Leukocyte Esterase Negative (Negative) 11/16/22 21:38 Urine RBC 1 /hpf (0-5) 11/16/22 21:38 Urine WBC 2 /hpf (0-5) 11/16/22 21:38 Ur Squamous Epith Cells 4 /hpf (0-4) 11/16/22 21:38 Urine Bacteria Few /hpf (None) H 11/16/22 21:38 Urine Mucus Rare /hpf (None) H 11/16/22 21:38 Urine HCG, Qual Not Detected (Not Detectd) 11/16/22 21:38 Urine Opiates Screen Not Detected (NotDetected) 11/16/22 21:38 Ur Oxycodone Screen Not Detected (NotDetected) 11/16/22 21:38 Urine Methadone Screen Not Detected (NotDetected) 11/16/22 21:38 Ur Propoxyphene Screen Not Detected (NotDetected) 11/16/22 21:38 Ur Barbiturates Screen Not Detected (NotDetected) 11/16/22 21:38 U Tricyclic Antidepress Not Detected (NotDetected) 11/16/22 21:38 Ur Phencyclidine Scrn Not Detected (NotDetected) 11/16/22 21:38 Ur Amphetamines Screen Not Detected (NotDetected) 11/16/22 21:38 U Methamphetamines Scrn Not Detected (NotDetected) 11/16/22 21:38 U Benzodiazepines Scrn Not Detected (NotDetected) 11/16/22 21:38 Urine Cocaine Screen Not Detected (NotDetected) 11/16/22 21:38 U Marijuana (THC) Screen Detected (NotDetected) H 11/16/22 21:38 Coronavirus (PCR) Not Detected (Not Detectd) 11/17/22 01:37 Vital Signs Temp 97.8 F 11/21/22 06:50 Pulse 97 11/21/22 07:32 Resp 17 11/21/22 06:50 BP 133/94 11/21/22 07:32 Pulse Ox 98 11/21/22 06:50 FiO2 Intake & Output 11/20/22 11/21/22 11/21/22 18:59 06:59 18:59 Weight 92.4 kg Patient Condition at Discharge: Stable Plan - Discharge Summary New Discharge Prescriptions: New Acetaminophen Tab [Tylenol] 650 mg PO Q4HR PRN tab PRN Reason: Pain/Discomfort Nicotine Gum (Polacrilex) [Nicorette] 2 mg BUCCAL Q4HR PRN 30 Days #180 pieceofgum PRN Reason: Nicotine Cravings QUEtiapine [SEROquel] 50 mg PO HS 30 Days #30 tab Continue ARIPiprazole IM SYRINGE [Abilify Maintena Syringe] 400 mg IM Q28D #1 each Discharge Medication List ARIPiprazole IM SYRINGE [Abilify Maintena Syringe] 400 mg IM Q28D #1 each 11/21/22 [Rx] Acetaminophen Tab [Tylenol] 650 mg PO Q4HR PRN tab 11/21/22 [Rx] Nicotine Gum (Polacrilex) [Nicorette] 2 mg BUCCAL Q4HR PRN 30 Days #180 pieceofgum 11/21/22 [Rx] QUEtiapine [SEROquel] 50 mg PO HS 30 Days #30 tab 11/21/22 [Rx] Follow up Appointment(s)/Referral(s): Mir Askew MD [Primary Care Provider] - 1-2 days Patient Instructions/Handouts: Generalized Anxiety Disorder (ED) Activity/Diet/Wound Care/Special Instructions: Avoid the use of street drugs and alcohol. Take all medications as prescribed. When you are in need of refills on your medications, please contact your medical provider and/or outpatient psychiatrist to have this done. Please go to [facility] outpatient appointments for aftercare treatment. If symptoms return or become worse, call the crisis line at and/or go to the nearest emergency room for evaluation. Discharge Disposition: HOME SELF-CARE
[2022-11-21] MEDS: ACETAMINOPHEN TAB 325 MG TAB PO PRN ×2 (15:27→22:21)
[2022-11-21] MEDS: QUEtiapine 50 MG TAB PO SCH (20:54)
[2022-11-22 06:53] VITALS: BP 129/82; PULSE 91; TEMP 98.5
[2022-11-22] MEDS: NICOTINE GUM (POLACRILEX) 2 MG GUM BUCCAL PRN (08:09)
--- NOTE | 2022-11-22 12:20 | P.DS ---
Providers Date of admission: 11/17/22 04:52 Expected date of discharge: 11/22/22 Attending physician: Jose Rizo MD Consults: 11/17/22 04:54 Consult Physician Routine Consulting Provider: Fortino Calvillo Consult Reason/Comments: medical H& P Do you want consulting provider notified?: Yes Primary care physician: Mir Askew MD - Discharge Diagnosis(es) (1) Schizoaffective disorder, bipolar type Current Visit: Yes Status: Acute Priority: High (2) Cannabis use disorder Current Visit: Yes Status: Acute Priority: High (3) Nicotine dependence Current Visit: Yes Status: Acute Priority: Low (4) Homelessness Current Visit: Yes Status: Acute Priority: Medium Hospital Course: Admission HPI: Admission note was completed by development writer "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 Patient cmae into the EDfor complaints of increased anxiety, borughtin by her father. patient was evaluated by EPS and seen to be disorganized and bizarre and admitted to the MHU. veronica has a hx of schizoaffective disorder bipolar type and currently being treated at [facility] by Dr Gama and recently given Abilify Maintenna 400 mg IM last on 11/14. Patient was seen wandering the hallways and was agreeable to speak with development writer inthe office today. patient appeared to be discheveled in appearance. he was also disorganized in her thought process, had thought blocking and was illogical at times. she was minimizing her sx and need for hospitalization and treatment. she had poor/limited insight. she claims that she was feeling "confused" and also stated that her brain was "neurodegenerative" and felt lik her brain was "scrambled recently. she was a poor historian, rambled at times. she claims that these symptoms have started the past 2-3 months. she claims that she is having financial stressors, her car is "gone" and claims that she is having problems wih her father. she also was tearful when describing her poor social support. she states that she is havign anxiety and depression, claims her sleep is poor, appetite is fair. denies any paranoia at this time. she denies any AH or VH and denies any SI or HI. claims that she uses a significant amount of cannabis daily, and also smokes cigarettes." Hospital course: Upon admission to the unit patient was directable and agreeable to commence treatment and signed adult voluntary form. Patient was initially bizarre and isolative however with treatment in time she got along well with other patients on the unit and followed unit protocol. Patient was compliant with the medications and denied any side effects throughout hospital course. Patient was started on Seroquel 50 mg daily at bedtime for insomnia/psychosis. Patient had received Abilify Maintenna 400 mg IM at [facility] on 11/14 and will be due for her next dose of 400 mg IM at [facility] on 12/12. Patient spoke of her stressors and engaged in therapy both group and individual. Patient was also seen by medical team for history and physical exam. Throughout the course of the hospitalization patient gradually improved with regards to mood, anxiety, psychosis, bizarre behaviors, sleep and returned back to their baseline level of functioning. On the day of discharge patient denied any suicidal or homicidal ideations intent or plan denied any auditory or visual hallucinations. Patient endorsed wanting to live for her job and her life. The patient denied any access to guns or weapons. Patient denied any paranoia and did not endorse any delusions. Patient does have a significant history of substance abuse and was counseled on abstaining from all substances including alcohol and marijuana. Patient elected to do outpatient substance use treatment program through [facility]. Patient was also counseled on the medications and need for regular compliance and was encouraged to follow-up with their outpatient appointment for mental health and also for primary care. development writer spoke with patients mother Audra over the phone who states that patient has episodes where she gets agitated with them and threatnening towards the family. development writer advised her that since being in the hospital patient has not mentiuoned any threatening comments or statements towards family and states that she will stay away from them. spoke with mother about her condition chronicity and severit and the improtance of compliance with meds and follow up. she understood and agreed. Mental status exam: General Appearance: Patient appears to be mildly overweight, stated age is alert, pleasant, and cooperative. Patient is in no acute distress and has improved hygiene and grooming Behavior: Patient is calmly seated without any agitated behavior. Speech: Patient's speech is fluent and nonpressured. [place] Mood/Affect: Patient reports their mood is "alright", affect is congruent and euthymic. Suicidality/Homicidality: Patient denies having any suicidal or homicidal ideation intent or plan. Perceptions: Patient denies any auditory or visual hallucinations. Though content/process: There is no evidence of any delusional thought content and thought process is linear and goal-directed. Memory and concentration: AOX3, grossly intact for the purposes of this session. Can spell "WORLD" backwards correctly. Judgment and insight: chronically poor, however has improved with guarded prognosis Impression: Schizoaffective disorder, bipolar type Cannabis use disorder Homelessness Nicotine dependence Plan: -Continue with discharge today as patient has improved and stabilized psychiatrically and is not currently an imminent threat to herself and/or others . Patient will remain at chronically elevated risk for harm to self and/or others due to her substance abuse. -Continue medications: Abilify Maintenna 400 mg IM, last dose given at [facility] on 11/14, next dose of 400 mg IM due on 12/12. Continue on with Seroquel 50 mg daily at bedtime for psychosis/insomnia. -Patient was counseled on the need for medication compliance and appropriate follow-up at mental health and also primary care for medical issues. Patient verbalized understanding and agreed. -Social work to help arrange for patient's discharge today. Social work also to arrange for patients follow up appointments with [facility] for psychiatric care along with follow up with primary care provider. -Patient counseled on abstaining from recreational drugs and marijuana and alcohol. Was informed/educated on the adverse effects on their physical and mental health. Patient verbally agreed and understood. Patient was offered substance abuse treatment however declined at this time. -Patient was instructed to return to the hospital or seek immediate medical care if their psychiatric or medical symptoms do worsen or reoccur. -Patient's parents will be driving the car up today to the hospital to leave patient the case. Patient was advised several times by development writer about the importance of staying away from the family and also about the concern about the threats towards them and that the police will be involved that this continues. Patient verbally understood and agreed. She will be discharged today to the assisted and will be given information for substance use treatment. patient will continue to follow up with [facility], Dr Gama. will provide resources with substance use treatment. Allergies Allergy/AdvReac Type Severity Reaction Status Date / Time No Known Allergies Allergy Verified 11/16/22 22:39 Laboratory Results TSH 1.720 mIU/L (0.465-4.680) 11/18/22 07:47 Urine Color Yellow 11/16/22 21:38 Urine Appearance Cloudy (Clear) H 11/16/22 21:38 Urine pH 6.0 (5.0-8.0) 11/16/22 21:38 Ur Specific [place] 1.025 (1.001-1.035) 11/16/22 21:38 Urine Protein Negative (Negative) 11/16/22 21:38 Urine Glucose (UA) Negative (Negative) 11/16/22 21:38 Urine Ketones Negative (Negative) 11/16/22 21:38 Urine Blood Small (Negative) H 11/16/22 21:38 Urine Nitrite Negative (Negative) 11/16/22 21:38 Urine Bilirubin Negative (Negative) 11/16/22 21:38 Urine Urobilinogen <2.0 mg/dL (<2.0) 11/16/22 21:38 Ur Leukocyte Esterase Negative (Negative) 11/16/22 21:38 Urine RBC 1 /hpf (0-5) 11/16/22 21:38 Urine WBC 2 /hpf (0-5) 11/16/22 21:38 Ur Squamous Epith Cells 4 /hpf (0-4) 11/16/22 21:38 Urine Bacteria Few /hpf (None) H 11/16/22 21:38 Urine Mucus Rare /hpf (None) H 11/16/22 21:38 Urine HCG, Qual Not Detected (Not Detectd) 11/16/22 21:38 Urine Opiates Screen Not Detected (NotDetected) 11/16/22 21:38 Ur Oxycodone Screen Not Detected (NotDetected) 11/16/22 21:38 Urine Methadone Screen Not Detected (NotDetected) 11/16/22 21:38 Ur Propoxyphene Screen Not Detected (NotDetected) 11/16/22 21:38 Ur Barbiturates Screen Not Detected (NotDetected) 11/16/22 21:38 U Tricyclic Antidepress Not Detected (NotDetected) 11/16/22 21:38 Ur Phencyclidine Scrn Not Detected (NotDetected) 11/16/22 21:38 Ur Amphetamines Screen Not Detected (NotDetected) 11/16/22 21:38 U Methamphetamines Scrn Not Detected (NotDetected) 11/16/22 21:38 U Benzodiazepines Scrn Not Detected (NotDetected) 11/16/22 21:38 Urine Cocaine Screen Not Detected (NotDetected) 11/16/22 21:38 U Marijuana (THC) Screen Detected (NotDetected) H 11/16/22 21:38 Coronavirus (PCR) Not Detected (Not Detectd) 11/17/22 01:37 Vital Signs Temp 98.5 F 11/22/22 06:52 Pulse 91 11/22/22 06:52 Resp 17 11/22/22 06:52 BP 129/82 11/22/22 06:52 Pulse Ox 97 11/22/22 06:52 FiO2 Patient Condition at Discharge: Stable Plan - Discharge Summary New Discharge Prescriptions: New Acetaminophen Tab [Tylenol] 650 mg PO Q4HR PRN tab PRN Reason: Pain/Discomfort Nicotine Gum (Polacrilex) [Nicorette] 2 mg BUCCAL Q4HR PRN 30 Days #180 pieceofgum PRN Reason: Nicotine Cravings QUEtiapine [SEROquel] 50 mg PO HS 30 Days #30 tab Continue ARIPiprazole IM SYRINGE [Abilify Maintena Syringe] 400 mg IM Q28D #1 each Discharge Medication List ARIPiprazole IM SYRINGE [Abilify Maintena Syringe] 400 mg IM Q28D #1 each 10/30 11/20 [Rx] Acetaminophen Tab [Tylenol] 650 mg PO Q4HR PRN tab 11/21/22 [Rx] Nicotine Gum (Polacrilex) [Nicorette] 2 mg BUCCAL Q4HR PRN 30 Days #180 pieceofgum 11/21/22 [Rx] QUEtiapine [SEROquel] 50 mg PO HS 30 Days #30 tab 11/21/22 [Rx] Follow up Appointment(s)/Referral(s): [facility] [Outside] - 11/24/22 11:00 am (11/24/2022 11:00AM - 12:00PM with CARLOZ LEVINE 11/29/2022 2:30PM - 3:30PM with Mir Quinonez MD [Primary Care Provider] - 1-2 days Patient Instructions/Handouts: How to Stop Smoking (DC), Schizoaffective Disorder (DC), Generalized Anxiety Disorder (ED) Activity/Diet/Wound Care/Special Instructions: Avoid the use of street drugs and alcohol. Take all medications as prescribed. When you are in need of refills on your medications, please contact your medical provider and/or outpatient psychiatrist to have this done. Please go to scheduled outpatient appointments for aftercare treatment. If symptoms return or become worse, call the crisis line at and/or go to the nearest emergency room for evaluation. Discharge Disposition: OTHER INSTITUTION NOT DEFINED
[2022-11-22] MEDS ORDERED: QUEtiapine 25 MG TAB PO SCH (21:00)
== END 2022-11-22 15:18 | disposition home or self-care (01) | DRG 885 ==
LOC: EC 19:47 → 3MHU 11-17 04:52
PROVIDERS: ADMIT Psychiatry & Neurology Psychiatry; ATTEND Psychiatry & Neurology Psychiatry
DX: F25.0 Schizoaffective disorder, bipolar type (principal); R45.850 Homicidal ideations; E66.9 Obesity, unspecified; F12.10 Cannabis abuse, uncomplicated; F17.290 Nicotine dependence, other tobacco product, uncomplicated; T40.712A Poisoning by cannabis, intentional self-harm, initial encounter; F15.91 Other stimulant use, unspecified, in remission; F17.210 Nicotine dependence, cigarettes, uncomplicated; G47.00 Insomnia, unspecified; Z20.822 Contact with and (suspected) exposure to COVID-19; Z60.8 Other problems related to social environment; Z68.34 Body mass index [BMI] 34.0-34.9, adult; Z59.00 Homelessness unspecified; Z63.8 Other specified problems related to primary support group; Z59.89 Other problems related to housing and economic circumstances
CPT/HCPCS: 80306; 81001; 81025; 84443; 87635; 99284

== ENCOUNTER 2023-03-15 17:05 | Inpatient (IN) | payer OTHER, MEDICAID ==
[2023-03-15] MEDS ORDERED: LORazepam 2 MG/ML INJ IM PRN (17:16)
[2023-03-15] MEDS ORDERED: HALOPERIDOL LACTATE 5 MG/ML 1 ML VIAL IM PRN (17:16)
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
[2023-03-15 18:51] LABS: Amphetamine Screen,Urine Detected (NotDetected); Barbiturate Screen,Urine Not Detected (NotDetected); Benzodiazepines Screen,Urine Not Detected (NotDetected); Cocaine Screen,Urine Detected (NotDetected); Methadone Screen, Urine Not Detected (NotDetected); Opiate Screen,Urine Not Detected (NotDetected); Oxycodone Screen, Urine Not Detected (NotDetected); Phencyclidine Screen,Urine Not Detected (NotDetected); Tricyclic Antidepressant,Urine Not Detected (NotDetected); Urn Cannabinoid Scrn Detected (NotDetected)
[2023-03-15] MEDS ORDERED: ACETAMINOPHEN TAB 325 MG TAB PO PRN (19:16)
[2023-03-15] MEDS ORDERED: MAGNESIUM HYDROXIDE 2,400 MG/30 ML CUP PO PRN (19:16)
[2023-03-15] MEDS ORDERED: MAG HYDROX/AL HYDROX/SIMETH 30 ML CUP PO PRN (19:16)
[2023-03-15] MEDS ORDERED: hydrOXYzine pamoate 25 MG CAP PO PRN (19:17)
[2023-03-15] MEDS ORDERED: OLANZapine 5 MG TAB PO PRN (19:17)
[2023-03-15] MEDS ORDERED: hydrOXYzine HCL 50 MG/ML 1 ML VIAL IM PRN (19:17)
[2023-03-15] MEDS ORDERED: OLANZapine 10 MG VIAL IM PRN (19:17)
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
[2023-03-16 03:03] LABS: Amorphous Sediment,Urine Occasional /hpf; Appearance,Urine Turbid (Clear); Bacteria,Urine Few /hpf; Bilirubin,Urine Negative (Negative); Blood,Urine Negative (Negative); Glucose,Urine (UA) Negative (Negative); Ketones,Urine Trace (Negative); Leukocyte Esterase,Urine Negative (Negative); Mucus,Urine Many /hpf; Nitrite,Urine Negative (Negative); PH, Urine 5.5 (5.0-8.0); Protein,Urine Trace (Negative); Specific Gravity,Urine 1.035 (1.001-1.035); Squamous Epithelial Cell,Urine 11 /hpf (0-4)
[2023-03-16 03:44] LABS: Color,Urine Yellow
[2023-03-16] MEDS: NICOTINE 14MG/24HR PATCH TRANSDERM SCH (07:47)
[2023-03-16] MEDS ORDERED: ARIPiprazole 5 MG TAB PO STA (10:13)
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
[2023-03-16] MEDS: NICOTINE GUM (POLACRILEX) 2 MG GUM BUCCAL PRN (18:30)
[2023-03-16] MEDS: traZODone HCL 50 MG TAB PO SCH (20:19)
[2023-03-17 06:45] VITALS: RESP 18
[2023-03-17] MEDS: NICOTINE 14MG/24HR PATCH TRANSDERM SCH (07:54)
[2023-03-17] MEDS ORDERED: ARIPiprazole 10 MG TAB PO SCH (09:00)
--- NOTE | 2023-03-17 11:24 | P.PN ---
Progress Note - Text Progress Note Date: 03/17/23 Interval History: Patient was seen wandering the hallways and was directable and agreeable to speak with designer/writer in the office. The patient is currently denying any suicidal or homicidal ideation, intention, and/or plan. She is not reporting any auditory or visual. She denies any paranoia or other delusions. She has been adherent with her medication is not reporting any significant effects. The patient is unable to recall the events that led up to this hospitalization. She also minimizes her substance abuse. She expresses strong desire for discharge. She plans to defer mental health court. She is agreeable to being on Abilify and transitioning back to the long-acting injectable medication. She reports no issues regarding her sleep or appetite. She denies any medical issues or concerns. Mental Status Exam: General Appearance: Patient appears to be stated age is alert, directable, and cooperative. Behavior: Patient is calmly seated without any agitated behavior. Speech: Patient's speech is fluent and nonpressured. Mood/Affect: Mood is improving mildly, affect is congruent and blunted. Suicidality/Homicidality: Patient reports no suicidal or homicidal ideation, intention, and/or plan Perceptions: Patient denies any visual hallucinations and denies any auditory hallucinations Though content/process: There is no evidence of any delusional thought content and thought process is linear and goal-directed. Memory and concentration: AOX3, grossly intact for the purposes of this session Judgment and insight: Improving mildly Vital Signs Temp 98.1 F 03/17/23 05:00 Pulse 82 03/17/23 05:00 Resp 18 03/17/23 05:00 BP 115/70 03/17/23 05:00 Pulse Ox 94 L 03/17/23 05:00 FiO2 Assessment Schizoaffective disorder, bipolar type Polysubstance abuse Cannabis use disorder Methamphetamine use disorder Cocaine use disorder Nicotine dependence Homelessness Plan: -Patient continues to meet criteria for inpatient psychiatric admission for symptom stabilization and safety. Patient has signed adult voluntary form and medication consent and was placed in patient's chart. -Medications: Increase Abilify to 20 mg by mouth daily with plans to transition to Abilify maintena this monday for schizoaffective disorder Trazodone 150 mg by mouth daily at bedtime for insomnia -When necessary Zyprexa and Vistaril for agitation/aggression. -NRT - nicotine patch -SW on board for discharge planning. Encouraged the patient to participate in milieu.
[2023-03-17] MEDS: traZODone HCL 50 MG TAB PO SCH (20:04)
[2023-03-17] MEDS: NICOTINE GUM (POLACRILEX) 2 MG GUM BUCCAL PRN (20:05)
[2023-03-18] MEDS: NICOTINE 14MG/24HR PATCH TRANSDERM SCH (08:48)
[2023-03-18] MEDS: ARIPiprazole 10 MG TAB PO SCH (08:48)
[2023-03-18] MEDS: NICOTINE GUM (POLACRILEX) 2 MG GUM BUCCAL PRN ×2 (08:49→18:15)
--- NOTE | 2023-03-18 11:43 | P.PN ---
Subjective Progress Note Date: 03/18/23 Principal diagnosis: Assessment Schizoaffective disorder, bipolar type Polysubstance abuse Cannabis use disorder Methamphetamine use disorder Cocaine use disorder Nicotine dependence Homelessness Patient Name: Marla Jenkins Date of : 89 Patient Status: Inpatient Attending Provider: Jerald Miramontes Interval History: Patient was seen wandering the hallways and was directable and agreeable to speak with data analyst report writer in the office. The patient is currently denying any suicidal or homicidal ideation, intention, and/or plan. She is not reporting any auditory or visual. She denies any paranoia or other delusions. She has been adherent with her medication is not reporting any significant effects. When asked for her reason for being hospitalized patient states that she is not sure She says that she is being accused of being schizophrenic or bipolar and that it is debatable She admits that she has used some drugs and that she has been using marijuana on a daily basis She also stated that she has 3 different jobs. She was working at the [employer] and several other places but did not give any specifics She states she currently lives alone Some other information seems to contradict what she hadn't mentioned at the time of admission including being homeless as well as using several other drugs at that time Mental Status Exam: General Appearance: Disheveled appearance has a ponytail on the side Patient appears to be stated age is alert, directable, and cooperative. She appears slightly drowsy Behavior: Patient is calm without any agitated behavior. Speech: Patient's speech is fluent and nonpressured. Mood/Affect: Mood blunted, affect is congruent and blunted. Suicidality/Homicidality: Patient reports no suicidal or homicidal ideation, intention, and/or plan Perceptions: Patient denies any visual hallucinations and denies any auditory hallucinations Though content/process: There is no evidence of any delusional thought content and thought process is linear and goal-directed. Memory and concentration: AOX3, grossly intact for the purposes of this session Judgment and insight: Impaired Assessment Schizoaffective disorder, bipolar type Polysubstance abuse Cannabis use disorder Methamphetamine use disorder Cocaine use disorder Nicotine dependence Homelessness Plan: -Patient continues to meet criteria for inpatient psychiatric admission for symptom stabilization and safety. Patient has signed adult voluntary form and medication consent and was placed in patient's chart. -Medications: Abilify to 20 mg by mouth daily with plans to transition to Abilify maintena th is monday for schizoaffective disorder Trazodone 150 mg by mouth daily at bedtime for insomnia -When necessary Zyprexa and Vistaril for agitation/aggression. -NRT - nicotine patch -SW on board for discharge planning. Encouraged the patient to participate in milieu. Bennett Nassar M.D. 03/18/2023 Objective - Vital Signs Vital signs: Vital Signs Temp 98.1 F 03/17/23 05:00 Pulse 82 03/17/23 05:00 Resp 18 03/17/23 05:00 BP 115/70 03/17/23 05:00 Pulse Ox 94 L 03/17/23 05:00 FiO2
[2023-03-18] MEDS: traZODone HCL 50 MG TAB PO SCH (19:39)
[2023-03-19] MEDS: NICOTINE GUM (POLACRILEX) 2 MG GUM BUCCAL PRN ×2 (08:35→19:52)
[2023-03-19] MEDS: ARIPiprazole 10 MG TAB PO SCH (08:35)
[2023-03-19] MEDS: NICOTINE 14MG/24HR PATCH TRANSDERM SCH (08:37)
--- NOTE | 2023-03-19 09:14 | P.PN ---
Subjective Progress Note Date: 03/19/23 Principal diagnosis: Assessment Schizoaffective disorder, bipolar type Polysubstance abuse Cannabis use disorder Methamphetamine use disorder Cocaine use disorder Nicotine dependence Homelessness Patient Name: Marla Jenkins Date of : 89 Patient Status: Inpatient Attending Provider: Jerald Miramontes Interval History: Patient was seen wandering the hallways and was directable and agreeable to speak with va underwriter in the office. The patient is currently denying any suicidal or homicidal ideation, intention, and/or plan. She is not reporting any auditory or visual. She denies any paranoia or other delusions. She has been adherent with her medication is not reporting any significant effects. Patient continues to minimize issues She stated that she is doing fantastic and that she slept very well She said that she is not having any problems this morning She denies that she has any intention of harming herself or others Mental Status Exam: General Appearance: Disheveled appearance has a ponytail on the side Patient appears to be stated age is alert, directable, and cooperative. She appears slightly drowsy Behavior: Patient is calm without any agitated behavior. Speech: Patient's speech is fluent and nonpressured. Mood/Affect: Mood blunted, affect is congruent and blunted. Suicidality/Homicidality: Patient reports no suicidal or homicidal ideation, intention, and/or plan Perceptions: Patient denies any visual hallucinations and denies any auditory hallucinations Though content/process: There is no evidence of any delusional thought content and thought process is linear and goal-directed. Memory and concentration: AOX3, grossly intact for the purposes of this session Judgment and insight: Impaired Assessment Schizoaffective disorder, bipolar type Polysubstance abuse Cannabis use disorder Methamphetamine use disorder Cocaine use disorder Nicotine dependence Homelessness Plan: -Patient continues to meet criteria for inpatient psychiatric admission for symptom stabilization and safety. Patient has signed adult voluntary form and medication consent and was placed in patient's chart. -Medications: Abilify to 20 mg by mouth daily with plans to transition to Abilify maintena this monday for schizoaffective disorder Trazodone 150 mg by mouth daily at bedtime for insomnia -When necessary Zyprexa and Vistaril for agitation/aggression. -NRT - nicotine patch -SW on board for discharge planning. Encouraged the patient to participate in milieu. Bennett Nassar M.D. 03/19/2023 Objective - Vital Signs Vital signs: Vital Signs Temp 98.1 F 03/17/23 05:00 Pulse 82 03/17/23 05:00 Resp 18 03/17/23 05:00 BP 115/70 03/17/23 05:00 Pulse Ox 94 L 03/17/23 05:00 FiO2
[2023-03-19] MEDS ORDERED: ARIPiprazole IM SYRINGE 400 MG (NO CHARGE) PHARMACY STOCK IM ONE (11:00)
[2023-03-19] MEDS: traZODone HCL 50 MG TAB PO SCH (19:30)
[2023-03-20] MEDS: NICOTINE 14MG/24HR PATCH TRANSDERM SCH (08:41)
[2023-03-20] MEDS: ARIPiprazole 10 MG TAB PO SCH (08:41)
[2023-03-20] MEDS: NICOTINE GUM (POLACRILEX) 2 MG GUM BUCCAL PRN (11:47)
--- NOTE | 2023-03-20 11:59 | P.PN ---
Progress Note - Text Progress Note Date: 03/20/23 Interval History: Patient was seen wandering the hallways and was directable and agreeable to speak with va underwriter in the office. The patient is currently denying any acute issues or concerns. She reports no suicidal or homicidal ideation, intention she denies any auditory or visual hallucinations. She reports no paranoia or other delusions. She has been adherent with her medication is not reporting any significant side effects. The patient expresses that she would be able to stay with a coworker upon discharge. This is yet to be confirmed. She reports no issues regarding her sleep or appetite. She reports no medical issues or concerns. Mental Status Exam: General Appearance: Patient appears to be stated age is alert, directable, and cooperative. Behavior: Patient is calmly seated without any agitated behavior. Speech: Patient's speech is fluent and nonpressured. Mood/Affect: Mood is improving mildly, affect is congruent and with slightly more range today. Euthymic. Suicidality/Homicidality: Patient reports no suicidal or homicidal ideation, intention, and/or plan Perceptions: Patient denies any visual hallucinations and denies any auditory hallucinations Though content/process: There is no evidence of any delusional thought content and thought process is linear and goal-directed. Memory and concentration: AOX3, grossly intact for the purposes of this session Judgment and insight: Improving mildly Vital Signs Temp 98.1 F 03/17/23 05:00 Pulse 71 03/19/23 09:22 Resp 18 03/17/23 05:00 BP 132/71 03/19/23 09:22 Pulse Ox 94 L 03/17/23 05:00 FiO2 Intake & Output 03/19/23 03/20/23 03/20/23 18:59 06:59 18:59 Weight 88.7 kg Assessment Schizoaffective disorder, bipolar type Polysubstance abuse Cannabis use disorder Methamphetamine use disorder Cocaine use disorder Nicotine dependence Homelessness Plan: -Patient continues to meet criteria for inpatient psychiatric admission for symptom stabilization and safety. The patient deferred mental health court. -Medications: Continue Abilify 20 mg by mouth daily. Patient received Abilify maintena 400 mg IM yesterday. Trazodone 150 mg by mouth daily at bedtime for insomnia -When necessary Zyprexa and Vistaril for agitation/aggression. -NRT - nicotine patch -SW on board for discharge planning. Encouraged the patient to participate in milieu.
[2023-03-20] MEDS: traZODone HCL 50 MG TAB PO SCH (20:46)
[2023-03-21 06:45] VITALS: BP 106/52; PULSE 75; TEMP 97.8
[2023-03-21] MEDS: NICOTINE 14MG/24HR PATCH TRANSDERM SCH (08:50)
[2023-03-21] MEDS: ARIPiprazole 10 MG TAB PO SCH (08:50)
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
== END 2023-03-21 11:51 | disposition home or self-care (01) | DRG 885 ==
LOC: EC 17:05 → 3MHU 19:11
PROVIDERS: ADMIT Psychiatry & Neurology Psychiatry; ATTEND Psychiatry & Neurology Psychiatry
DX: F25.0 Schizoaffective disorder, bipolar type (principal); R45.851 Suicidal ideations; G47.00 Insomnia, unspecified; F17.210 Nicotine dependence, cigarettes, uncomplicated; F15.10 Other stimulant abuse, uncomplicated; F14.10 Cocaine abuse, uncomplicated; F12.10 Cannabis abuse, uncomplicated; F19.10 Other psychoactive substance abuse, uncomplicated; F41.9 Anxiety disorder, unspecified; B35.1 Tinea unguium; Z20.822 Contact with and (suspected) exposure to COVID-19; Z59.00 Homelessness unspecified; Z56.0 Unemployment, unspecified; Z71.51 Drug abuse counseling and surveillance of drug abuser
CPT/HCPCS: 80306; 81001; 81025; 82075; 87635; 99285

== ENCOUNTER → 2023-08-02 | Outpatient (CLI) | payer OTHER ==
--- NOTE | 2023-08-02 14:31 | P.HPBAR ---
Bariatric H&P - History & Physicial H&P Date: 08/02/23 History & Physicial: Visit/CC: Patient initial contact: Initial weight: Initial weight in pounds: Height: 5 ft 5 in Initial BMI: Last weight: Current weight: 101.151 kg Current weight in pounds: Current BMI: [place] body weight (based on NIH guidelines): Excess body weight loss: DATE OF SERVICE: 08/02/23 REASON FOR CONSULTATION: Initial bariatric evaluation. HISTORY OF PRESENT ILLNESS: Marla Jenkins is a 28-year-old female who comes with morbid obesity. Highest weight is at present. She has undergone medical s upervised weight loss in 2021 and lost 20 pounds with weight gain. She reports chronic lower back pain. No hip pain. He has bilateral knee pain. No ankle pain. No feet pain. She still has her gallbladder. She denies moderate heart burn. No family history of stomach or colon cancer. She has trouble swallowing pills in the throat. No blood clots in her or in her family. She snores. She has sleep apnea undiagnosed. She is looking into the gastric bypass. No prior surgeries to the stomach. Her grandparents has diabetes and obesity. Her aunt had gastric bypass. Her father is obese. She denies blood in stools. She presents to me first time in consultation for gastric bypass. At height of 5 feet 5 inches, her ideal body weight is 149 pounds. She comes in 223 pounds. Her body mass index is 37.1. She is 74 pounds overweight. PAST MEDICAL HISTORY: 1. Morbid obesity due to excess calories 2. Body mass index of 37.1, initial 3. Bipolar disorder 4. Depressive disorder PAST SURGICAL HISTORY: 1. Denies HOME MEDICATIONS: Home Medications Medication Instructions Recorded Confirmed Ergocalciferol [Vitamin D2 (1250 50,000 unit PO WEEKLY 08/08/23 08/08/23 Mcg = 66067 Iu)] Previous Rx's Medication Instructions Recorded ARIPiprazole IM [Abilify Maintena] 400 mg IM QMONTHLY 1 Days #1 each 03/21/23 ARIPiprazole [Abilify] 20 mg PO DAILY 10 Days #20 tab 03/21/23 Nicotine Gum (Polacrilex) 2 mg BUCCAL Q6HR PRN 7 Days #28 03/21/23 [Nicorette] pieceofgum traZODone HCL [Desyrel] 150 mg PO HS 30 Days #90 tab 03/21/23 ALLERGIES: Allergies Allergy/AdvReac Type Severity Reaction Status Date / Time No Known Allergies Allergy Verified 08/02/23 14:32 SOCIAL HISTORY: Tobacco use. History of methadone addiction. FAMILY HISTORY: No family history of ulcerative colitis disease or Crohn's d isease. Family history of morbid obesity. No lupus in the family. No reports of stomach or esophageal cancer. Her grandparents has diabetes and obesity. REVIEW OF ORGAN SYSTEMS: CONSTITUTIONAL: At height of 5 feet 5 inches, her ideal body weight is 149 pounds. She comes in 223 pounds. Her body mass index is 37.1. She is 74 pounds overweight. HEENT: Denies any active troubles with vision or hearing. Has troubles with swallowing. ENDOCRINE: Denies diabetes. No hypothyroidism. CARDIOVASCULAR: Past reports of palpitations or heart attacks or chest pain. Denies hypertensive heart disease. RESPIRATORY: Has daytime somnolence. GASTROINTESTINAL: Denies any bright red blood per rectum. No diarrhea. No constipation. Has gastroesophageal reflux disease. GENITOURINARY: Denies bladder urgency. No recent blood in urine MUSCULOSKELETAL: Has lower back pain and joint pain. Has osteoarthritis of the knees. NEURO: No headaches. No seizure disorders. PSYCH: Has depression. No suicidal ideation. Has bipolar disorder. RHEUMATOLOGIC: No lupus. No rheumatoid arthritis. HEMATOLOGIC: Denies any abnormal bleeding or bruising. SKIN: No rash. No skin cancer. PHYSICAL EXAM: VITAL SIGNS: Height 5 foot 5 inches, weight 223 pounds. BMI 37.1 Vital Signs Temp 97.8 F 08/02/23 14:32 Pulse 94 08/02/23 14:32 Resp BP 124/83 08/02/23 14:32 Pulse Ox FiO2 GENERAL: Well-developed in no acute distress. HEENT: No scleral icterus. Extraocular movements grossly intact. Hears conversational speech. No nasal drainage. NECK: Supple without lymphadenopathy. CHEST: Nonlabored respirations with equal bilateral excursions. CARDIOVASCULAR: Regular rate and regular rhythm. Distal 2+ pulses. ABDOMEN: Obese, soft, nontender, nondistended. MUSCULOSKELETAL: No clubbing, cyanosis. NEURO: No focal or lateralizing signs. Cranial nerves 2 through 12 grossly within normal limits. PSYCH: Appropriate affect. Alert and oriented to person, place and time. SKIN: Good skin turgor. Well perfused. ASSESSMENT: 1. Morbid obesity due to excess calories 2. Body mass index of 37.1, initial 3. Bipolar disorder 4. Depressive disorder 5. Dysphagia PLAN: 1. Surgical options including band, gastric bypass, sleeve gastrectomy were described in detail. Alternatives such as gastric balloon including duodenal switch were described. She is looking into the gastric bypass. 2. The [place] bariat[facility] surgical collaborative data and outcomes available 3. Recommend a bariatric metabolic panel to evaluate for micro- including macronutrient deficiencies. 4. For history of daytime somnolence, recommend evaluation and treatment for sleep apnea. 5. Dietary surveillance and counseling was reviewed. Increased protein intake over 65 grams daily advised. 6. Will need cardiac risk assessment. 7. Recommend medical risk assessment. 8. Psych assessment per insurance guidelines. 9. Recommend upper endoscopy. 10. Recommend 12-lead EKG. 11. Recommend esophagram for dysphagia 12. Recommend full urine metabolites testing 13. Strict tobacco cessation and counseling reviewed from 3-5 minutes. Patients elevated risk for complications with gastric bypass. Thank you for this consultation. Past Medical History Past Medical History: No Reported History Additional Past Medical History / Comment(s): clean from meth for one year 10/2022 History of Any Multi-Drug Resistant Organisms: None Reported Past Surgical History: No Surgical Hx Reported Additional Past Surgical History / Comment(s): eye Past Anesthesia/Blood Transfusion Reactions: No Reported Reaction Past Psychological History: Bipolar, Depression Smoking Status: Current every day smoker, Vaper Past Alcohol Use History: None Reported Past Drug Use History: None Reported - Past Family History Father Family Medical History: No Reported History Results - Labs 08/02/23 14:53 08/02/23 14:53 Bariatric Checklist Checklist: Plan: Checklist: EGD: 1. Hiatal hernia: 2. H. Pylori: HgbA1c: Vitamin D: Smoking: Primary care physician referral: none Psychiatry clearance: Cardiology clearance: Sleep study: Diet journal: VTE risk score: VTE risk level: Rehab needs at discharge:
[2023-08-02 14:54] VITALS: BP 124/83; PULSE 94; TEMP 97.8; BMI 37.0
[2023-08-02 19:06] LABS: HCT 41.7 % (37.2-46.3); HGB 13.8 g/dL (12.0-15.0); MCH 28.8 pg (27.0-32.0); MCHC 33.1 g/dL (32.0-37.0); MCV 87.1 FL (80.0-97.0); NRBC Per 100 WBC 0 X 10*3/uL (0.00-0.01); Platelet Count 258 X 10*3/uL (140-440); RBC 4.79 X 10*6/uL (4.10-5.20); RDW 12.3 % (11.5-14.5); WBC 7.65 X 10*3/uL (4.50-10.00)
[2023-08-02 23:36] LABS: Prealbumin 22.2 mg/dL (18.0-42.0)
[2023-08-03 00:03] LABS: Chol/HDL Ratio 5.76 Ratio; Magnesium 1.9 mg/dL (1.5-2.4)
[2023-08-03 00:04] LABS: % Iron Saturation 26.41 (12.00-45.00); ALT 17 U/L (8-44); AST 18 U/L (13-35); Albumin 4.2 g/dL (3.8-4.9); Albumin/Globulin Ratio 1.75 Ratio (1.60-3.17); Alkaline Phosphatase 62 U/L (41-126); BUN/Creat Ratio 18.12 Ratio (12.00-20.00); Blood Urea Nitrogen 14.5 mg/dL (9.0-27.0); Calcium 9.6 mg/dL (8.7-10.3); Carbon Dioxide 25.4 mmol/L (21.6-31.8); Chloride 105 mmol/L (96-109); Globulin 2.4 g/dL (1.6-3.3); Glucose 59 mg/dL (70-110); Iron 89 UG/DL (50-170); Potassium 4.3 mmol/L (3.5-5.5); Sodium 143 mmol/L (135-145); Total Bilirubin <0.2 mg/dL (0.3-1.2); Total Iron Binding Capacity 337 UG/DL (228-460); Total Protein 6.6 g/dL (6.2-8.2)
[2023-08-03 11:31] LABS: Zinc, Serum 67 ug/dL (60-130)
[2023-08-04 06:48] LABS: Vit B1(Thiamine) 56 ug/L (38-122)
[2023-08-07 07:29] LABS: Anabasine Urine 5.4 ng/mL (<2.0)
[2023-08-08 12:33] LABS: Vitamin A 43 ug/dL (38-106)
[2023-08-09 08:07] LABS: Selenium 124 mcg/L (63-160)
== END ==
LOC: BARWHC3 14:00
PROVIDERS: ATTEND Surgery Plastic and Reconstructive Surgery
DX: E66.01 Morbid (severe) obesity due to excess calories (principal); E89.1 Postprocedural hypoinsulinemia; D50.8 Other iron deficiency anemias; K90.89 Other intestinal malabsorption; E55.9 Vitamin D deficiency, unspecified; K74.1 Hepatic sclerosis; N19 Unspecified kidney failure; T56.894A Toxic effect of other metals, undetermined, initial encounter; K50.90 Crohn's disease, unspecified, without complications; F31.9 Bipolar disorder, unspecified; R13.10 Dysphagia, unspecified; F17.290 Nicotine dependence, other tobacco product, uncomplicated; F12.90 Cannabis use, unspecified, uncomplicated; Z68.37 Body mass index [BMI] 37.0-37.9, adult
CPT/HCPCS: 84255; 84134; 84425; 80061; 80053; 82607; 82728; 82525; 82746; 83540; 83550; 83735; 84443; 84590; 84630; 85027; 85730; 82306; 83970; 80307; 93005; G0480; G0463; 80323; 99212